=== PATIENT | female | born 1985 | race American Indian/Alaskan Native ===

== ENCOUNTER 2021-12-22 17:38 | Emergency (ER) | payer OTHER, MEDICAID, SELFPAY ==
[2021-12-22 17:42] VITALS: BP 141/91; PULSE 79; RESP 14; TEMP 37.6; O2SAT 98; BMI 26.6
[2021-12-22] MEDS: predniSONE 20 MG TABLET 40 MG PO (17:47)
[2021-12-22] MEDS: diphenhydrAMINE 25 MG TABLET PO (17:47)
--- NOTE | 2021-12-22 17:58 | PC.NURSE ---
Prednisone refused by pt,unable to edit in DEC.
== END 2021-12-22 18:00 | disposition left against medical advice (07) ==
LOC: ED 18:14
DX: Z53.21 Procedure and treatment not carried out due to patient leaving prior to being seen by health care provider (principal)
CPT/HCPCS: 99283